=== PATIENT | female | born 1960 | race Caucasian/White ===

== ENCOUNTER 2017-03-18 00:45 | Emergency (ER) | payer OTHER ==
[~2017-03-18] VITALS: Ht 157.5 cm; Wt 60.0 kg
[~2017-03-18 00:45] MED LIST: LITH600C PO; TRAZ100T15 PO
[2017-03-18] MEDS ORDERED: ACETAMINOPHEN 325 MG TABLET PO ONE (01:00)
[2017-03-18] MEDS ORDERED: ROPI0.2537 PO (01:11)
[2017-03-18] MEDS ORDERED: ONDA4TAB7 PO (01:11)
[2017-03-18] MEDS ORDERED: FLUO10CA7 PO (01:12)
[2017-03-18] MEDS ORDERED: PANT20TA3 PO (01:12)
[2017-03-18] MEDS ORDERED: BENZ0.5T PO (01:12)
[2017-03-18] MEDS ORDERED: OLAN2.5T10 PO (01:12)
[2017-03-18] MEDS ORDERED: HYDR10TA4 PO (01:13)
[2017-03-18] MEDS ORDERED: ACETAMINOPHEN 325 MG TABLET ONE (01:14)
[2017-03-18 01:17] LABS: HEMATOCRIT 42.5 % (34.6-47.8); HEMOGLOBIN 14.2 g/dL (11.7-16.4); WHITE BLOOD COUNT 8.3 x10^3/uL (3.4-10)
[2017-03-18 01:29] LABS: ASPARTATE AMINO TRANSFERASE 63 U/L (15-37); BLOOD UREA NITROGEN 13 mg/dL (7-18)
[2017-03-18 01:39] LABS: IS PT STATUS REG ER OR PRE ER? YES
[2017-03-18] MEDS ORDERED: ALBUTEROL/IPRATROPIUM 2.5MG/0.5MG, 3 ML NPPB ONE (02:00)
[2017-03-18 02:27] VITALS: BP 101/64
== END 2017-03-18 02:31 | disposition home or self-care (01) ==
LOC: ED 01:40
DX: R07.89 Other chest pain (principal)
CPT/HCPCS: 36415; 71010; 80053; 84484; 85025; 93005; 94640; 99285; J7620

== ENCOUNTER 2018-03-31 04:56 | Emergency (ER) | payer OTHER ==
[~2018-03-31] VITALS: Ht 157.5 cm; Wt 58.5 kg
[~2018-03-31 04:56] MED LIST changes: +BENZ0.5T35 PO; +FLUO10CA7 PO; +HYDR10TA4 PO; +OLAN2.5T10 PO; +ONDA4TAB7 PO; +PANT20TA3 PO; +ROPI0.254 PO; +TRAZ-137 PO; -TRAZ100T15 PO
[2018-03-31] MEDS ORDERED: ASPIRIN 81 MG TABLET CHEW PO ONE (05:00)
[2018-03-31] MEDS ORDERED: LORazepam 1MG TABLET PO ONE (05:30)
[2018-03-31 05:31] LABS: BASOPHILS # (AUTO) 0.02 x10^3/uL (0-0.1); BASOPHILS % (AUTO) 0 % (0-1); EOSINOPHILS # (AUTO) 0.09 x10^3/uL (0-0.4); EOSINOPHILS % (AUTO) 2 % (1-7); LYMPHOCYTES % (AUTO) 52 % (22-44); MD NO; MEAN CORPUSCULAR HEMOGLOBIN 32.2 pg (27.0-34.8); MEAN CORPUSCULAR VOLUME 94.7 fL (80-100); MEAN PLATELET VOLUME 9.3 fL (7.4-10.4); MONOCYTES # (AUTO) 0.43 x10^3/uL (0.2-0.8); MONOCYTES % (AUTO) 8 % (2-9); NEUTROPHILS # (AUTO) 2.03 x10^3/uL (1.8-6.8); NEUTROPHILS % (AUTO) 38 % (42-75); PLATELET COUNT 144 x10^3/uL (130-400); RED BLOOD COUNT 4.04 x10^6/uL (3.82-5.3); RED CELL DISTRIBUTION WIDTH 13.8 % (9.6-15.2)
[2018-03-31 05:40] LABS: ALBUMIN 3.3 g/dL (3.4-5.0); ANION GAP 9 mmol/L (5-15); CALCIUM 8.3 mg/dL (8.5-10.1); CHLORIDE 109 mmol/L (98-107)
[2018-03-31 05:43] LABS: T4 (THYROXINE) 14.8 mcg/dL (4.8-13.9); TROPONIN I < 0.015 ng/mL (0.000-0.045)
[2018-03-31] MEDS ORDERED: ASPIRIN 81 MG TABLET CHEW ONE (05:58)
[2018-03-31] MEDS ORDERED: LORazepam 2 MG/ML, 1ML ONE (05:59)
[2018-03-31] MEDS ORDERED: LORazepam 2 MG/ML, 1ML IVPush ONE (06:00)
[2018-03-31 07:28] LABS: AMPHETAMINE SCREEN, URINE Negative (Negative); BARBITURATE SCREEN, URINE Negative (Negative); BENZODIAZEPINE SCREEN, URINE Negative (Negative); CANNABINOID SCREEN, URINE Negative (Negative); COCAINE SCREEN, URINE Negative (Negative); METHADONE SCREEN, URINE Negative (Negative); OPIATE SCREEN, URINE Negative (Negative)
[2018-03-31 08:10] VITALS: BP 115/55
== END 2018-03-31 08:11 | disposition home or self-care (01) ==
LOC: ED 06:29
DX: R00.2 Palpitations (principal); E05.90 Thyrotoxicosis, unspecified without thyrotoxic crisis or storm; F31.9 Bipolar disorder, unspecified; F20.9 Schizophrenia, unspecified; R51 Headache
CPT/HCPCS: 36415; 70450; 71046; 80048; 80307; 82040; 83880; 84436; 84443; 84484; 85025; 93005; 99285

== ENCOUNTER 2018-04-06 19:53 | Emergency (ER) | payer OTHER ==
[~2018-04-06] VITALS: Ht 157.5 cm; Wt 57.0 kg
[2018-04-06] MEDS ORDERED: SODIUM CHLORIDE FLUSH 10ML SYR IVF ONE (20:30)
[2018-04-06] MEDS ORDERED: LORazepam 2 MG/ML, 1ML IVPush ONE (20:30)
[2018-04-06] MEDS ORDERED: LORazepam 2 MG/ML, 1ML ONE (20:42)
[2018-04-06 20:57] LABS: ALANINE AMINOTRANSFERASE 149 U/L (12-78); ALBUMIN 3.5 g/dL (3.4-5.0); ANION GAP 8 mmol/L (5-15); CALCIUM 8.2 mg/dL (8.5-10.1); CHLORIDE 110 mmol/L (98-107); CREATININE 0.66 mg/dL (0.55-1.02)
[2018-04-06] MEDS ORDERED: OXYcodone/APAP 10/325MG TABLET ONE (20:59)
[2018-04-06] MEDS ORDERED: OXYcodone/APAP 10/325MG TABLET PO ONE (21:00)
[2018-04-06 21:07] LABS: ALKALINE PHOSPHATASE 68 U/L (45-117); BILIRUBIN,TOTAL 0.3 mg/dL (0.2-1.0); FREE T4 (FREE THYROXINE) 1.06 ng/dL (0.76-1.46); THYROID STIMULATING HORMONE 0.966 mIU/L (0.358-3.740); TOTAL PROTEIN 7.1 g/dL (6.4-8.2)
[2018-04-06 21:10] LABS: BASOPHILS # (AUTO) 0.02 x10^3/uL (0-0.1); BASOPHILS % (AUTO) 0 % (0-1); EOSINOPHILS # (AUTO) 0.12 x10^3/uL (0-0.4); EOSINOPHILS % (AUTO) 2 % (1-7); LYMPHOCYTES # (AUTO) 3.61 x10^3/uL (1-3.4); LYMPHOCYTES % (AUTO) 47 % (22-44); MD NO; MEAN CORPUSCULAR HEMOGLOBIN 32.2 pg (27.0-34.8); MEAN CORPUSCULAR HGB CONC 33.9 g/dL (32.4-35.8); MEAN CORPUSCULAR VOLUME 95.1 fL (80-100); MONOCYTES # (AUTO) 0.55 x10^3/uL (0.2-0.8); MONOCYTES % (AUTO) 7 % (2-9); NEUTROPHILS # (AUTO) 3.39 x10^3/uL (1.8-6.8); NEUTROPHILS % (AUTO) 44 % (42-75); PLATELET COUNT 196 x10^3/uL (130-400); RED BLOOD COUNT 4.28 x10^6/uL (3.82-5.3); RED CELL DISTRIBUTION WIDTH 13.6 % (9.6-15.2)
[2018-04-06 21:37] VITALS: BP 124/75
== END 2018-04-06 21:39 | disposition home or self-care (01) ==
LOC: ED 20:32
DX: F41.1 Generalized anxiety disorder (principal); F20.9 Schizophrenia, unspecified; F31.9 Bipolar disorder, unspecified; E05.90 Thyrotoxicosis, unspecified without thyrotoxic crisis or storm
CPT/HCPCS: 36415; 80053; 84439; 84443; 84481; 85025; 93005; 99285

== ENCOUNTER 2018-05-05 00:34 | Emergency (ER) | payer OTHER ==
[~2018-05-05] VITALS: Ht 157.5 cm; Wt 60.1 kg
[2018-05-05] MEDS ORDERED: PROP10TA PO (00:43)
[2018-05-05] MEDS ORDERED: METH5TAB6 PO (00:43)
[2018-05-05] MEDS ORDERED: KETOROLAC 30 MG/1 ML ONE (00:59)
[2018-05-05] MEDS ORDERED: KETOROLAC 30 MG/1 ML IM ONE (01:00)
[2018-05-05 01:18] LABS: BASOPHILS # (AUTO) 0.01 x10^3/uL (0-0.1); BASOPHILS % (AUTO) 0 % (0-1); EOSINOPHILS # (AUTO) 0.14 x10^3/uL (0-0.4); EOSINOPHILS % (AUTO) 2 % (1-7); LYMPHOCYTES # (AUTO) 3.13 x10^3/uL (1-3.4); LYMPHOCYTES % (AUTO) 41 % (22-44); MD NO; MEAN CORPUSCULAR HEMOGLOBIN 32.3 pg (27.0-34.8); MEAN CORPUSCULAR HGB CONC 34.3 g/dL (32.4-35.8); MEAN CORPUSCULAR VOLUME 94.1 fL (80-100); MEAN PLATELET VOLUME 9.6 fL (7.4-10.4); MONOCYTES # (AUTO) 0.65 x10^3/uL (0.2-0.8); MONOCYTES % (AUTO) 9 % (2-9); NEUTROPHILS # (AUTO) 3.73 x10^3/uL (1.8-6.8); NEUTROPHILS % (AUTO) 49 % (42-75); PLATELET COUNT 140 x10^3/uL (130-400); RED BLOOD COUNT 4.23 x10^6/uL (3.82-5.3); RED CELL DISTRIBUTION WIDTH 13.8 % (9.6-15.2)
[2018-05-05 01:27] LABS: ALBUMIN 3.5 g/dL (3.4-5.0); CALCIUM 8.3 mg/dL (8.5-10.1); CREATININE 0.67 mg/dL (0.55-1.02)
[2018-05-05 01:30] LABS: TROPONIN I < 0.015 ng/mL (0.000-0.045)
[2018-05-05 01:40] LABS: ANION GAP 8 mmol/L (5-15); CHLORIDE 108 mmol/L (98-107)
[2018-05-05] MEDS ORDERED: DIPHENHYDRAMINE 25 MG CAPSULE PO ONE (02:30)
[2018-05-05] MEDS ORDERED: DIPHENHYDRAMINE 25 MG CAPSULE ONE (02:32)
[2018-05-05 03:35] VITALS: BP 97/52
[2018-05-05 03:48] LABS: TROPONIN I < 0.015 ng/mL (0.000-0.045)
== END 2018-05-05 04:32 | disposition home or self-care (01) ==
LOC: ED 00:53
DX: T43.215A Adverse effect of selective serotonin and norepinephrine reuptake inhibitors, initial encounter (principal); R07.89 Other chest pain; F41.1 Generalized anxiety disorder; E03.9 Hypothyroidism, unspecified; Y92.9 Unspecified place or not applicable
CPT/HCPCS: 36415; 71045; 80048; 82040; 84484; 85025; 93005; 96372; 99285; J1885; Q0163

== ENCOUNTER 2018-07-21 20:58 | Emergency (ER) | payer OTHER ==
[~2018-07-21] VITALS: Ht 157.5 cm; Wt 65.3 kg
[~2018-07-21 20:58] MED LIST changes: +METH5TAB6 PO; +PROP10TA16 PO
[2018-07-21] MEDS ORDERED: DEXAMETHASONE 4 MG/ML, 1ML ONE (21:29)
[2018-07-21] MEDS ORDERED: DIPHENHYDRAMINE 50 MG/ML, 1ML ONE (21:29)
[2018-07-21] MEDS ORDERED: METOCLOPRAMIDE 5 MG/ML, 2ML ONE (21:29)
[2018-07-21] MEDS ORDERED: KETOROLAC 30 MG/1 ML ONE (21:29)
[2018-07-21] MEDS ORDERED: DIPHENHYDRAMINE 50 MG/ML, 1ML IVPush ONE (21:30)
[2018-07-21] MEDS ORDERED: METOCLOPRAMIDE 5 MG/ML, 2ML IVPush ONE (21:30)
[2018-07-21] MEDS ORDERED: DEXAMETHASONE 4 MG/ML, 1ML IVPush ONE (21:30)
[2018-07-21] MEDS ORDERED: KETOROLAC 30 MG/1 ML IVPush ONE (21:30)
--- NOTE | 2018-07-21 21:51 | NUR ---
Pt reports migrane type headache starting approx noon, no relief with home meds, photophobic, nauseas, denies vomiting, denies hx of. A&Ox4, lights dimmed, door shut for decreased noise, family at bedside.
--- NOTE | 2018-07-21 22:16 | NUR ---
Pt denies pain relief, MD aware
[2018-07-21] MEDS ORDERED: MAGNESIUM SULFATE PMX 2GM/50ML 50 ML IV ONE (22:30)
--- NOTE | 2018-07-21 22:42 | NUR ---
BREAK RN: Plan of care updated with patient. Magnesium infusing as ordered and documented, witnessed by SUSIE De Leon.
--- NOTE | 2018-07-21 23:16 | NUR ---
Report from Dat RICHARDS, mag alvarado, pt remains anxious, denies any pain relief after multiple interventions including meds.
[2018-07-21] MEDS ORDERED: MORPHINE SULFATE 4 MG/ML, 1ML ONE (23:28)
--- NOTE | 2018-07-21 23:29 | NUR ---
Morphine removed from pts allergies, pt states "I dont know what that is in there, I've never had an allergy or reaction to morphine" aware and confirmed okay to remove allergy.
[2018-07-21] MEDS ORDERED: MORPHINE SULFATE 4 MG/ML, 1ML IVPush ONE (23:30)
--- NOTE | 2018-07-21 23:45 | NUR ---
in for recheck, pt continues to deny any pain relief. Pt remains on cont cardiac and and pulse ox monitoring. Mag infusing. Medicated per emar, [address]
--- NOTE | 2018-07-22 00:10 | NUR ---
Pt reports 01/26 headache, states that is decreased from inital assesment. Mag still infusing, awaiting MD recheck. Pt denies any needs/concerns.
[2018-07-22 00:23] VITALS: BP 107/57
--- NOTE | 2018-07-22 00:32 | NUR ---
in for recheck, pt agrees to DC
--- NOTE | 2018-07-22 00:52 | NUR ---
Pt reports decreased/tolerable level of pain
== END 2018-07-22 00:54 | disposition home or self-care (01) ==
LOC: ED 22:21
DX: R51 Headache (principal); H53.149 Visual discomfort, unspecified; R11.0 Nausea; E05.90 Thyrotoxicosis, unspecified without thyrotoxic crisis or storm; M81.0 Age-related osteoporosis without current pathological fracture; F31.9 Bipolar disorder, unspecified; F20.9 Schizophrenia, unspecified; F17.200 Nicotine dependence, unspecified, uncomplicated; Z72.9 Problem related to lifestyle, unspecified
CPT/HCPCS: 70450; 96365; 96366; 96375; 99284; J1100; J1200; J1885; J2765; J3475

== ENCOUNTER 2018-12-22 05:35 | Emergency (ER) | payer OTHER ==
[~2018-12-22] VITALS: Ht 157.5 cm; Wt 66.8 kg
[2018-12-22] MEDS ORDERED: SODIUM CHLORIDE FLUSH 10ML SYR IVF ONE (06:00)
--- NOTE | 2018-12-22 06:06 | NUR ---
PT BIB [facility] WITH C/O INTERMITTENT L SIDE WEAKNESS AND TINGLING FOR 1 MONTH. PT'S AOX4. RESPS EVEN AND UNLABORED. SPEECH CLEAR. ALL MONITORS IN PLACE. CALL LIGHT WITHIN REACH.
--- NOTE | 2018-12-22 06:08 | NUR ---
PT TO CT NOW.
--- NOTE | 2018-12-22 06:12 | NUR ---
PT BACK TO ROOM FROM CT NOW.
[2018-12-22] MEDS ORDERED: METH5TAB6 PO (06:18)
[2018-12-22] MEDS ORDERED: RISP1TAB3 PO (06:19)
[2018-12-22] MEDS ORDERED: PROM25TA10 PO (06:21)
[2018-12-22] MEDS ORDERED: OXYC5CAP2 PO (06:22)
[2018-12-22] MEDS ORDERED: CALC-534 PO (06:24)
[2018-12-22] MEDS ORDERED: CHOL3000 PO (06:25)
[2018-12-22 06:35] LABS: BASOPHILS # (AUTO) 0.03 x10^3/uL (0-0.1); BASOPHILS % (AUTO) 1 % (0-1); EOSINOPHILS # (AUTO) 0.11 x10^3/uL (0-0.4); EOSINOPHILS % (AUTO) 2 % (1-7); LYMPHOCYTES # (AUTO) 2.63 x10^3/uL (1-3.4); LYMPHOCYTES % (AUTO) 49 % (22-44); MD NO; MEAN CORPUSCULAR HEMOGLOBIN 32.7 pg (27.0-34.8); MEAN CORPUSCULAR HGB CONC 33.6 g/dL (32.4-35.8); MEAN CORPUSCULAR VOLUME 97.4 fL (80-100); MEAN PLATELET VOLUME 9.3 fL (7.4-10.4); MONOCYTES # (AUTO) 0.54 x10^3/uL (0.2-0.8); MONOCYTES % (AUTO) 10 % (2-9); NEUTROPHILS # (AUTO) 2.08 x10^3/uL (1.8-6.8); NEUTROPHILS % (AUTO) 39 % (42-75); PLATELET COUNT 126 x10^3/uL (130-400); RED BLOOD COUNT 4.48 x10^6/uL (3.82-5.3); RED CELL DISTRIBUTION WIDTH 13.7 % (9.6-15.2)
[2018-12-22 06:46] LABS: ALANINE AMINOTRANSFERASE 94 U/L (12-78); ALBUMIN 3.5 g/dL (3.4-5.0); ANION GAP 8 mmol/L (5-15); CALCIUM 8.6 mg/dL (8.5-10.1); CHLORIDE 108 mmol/L (98-107); CREATININE 0.74 mg/dL (0.55-1.02)
[2018-12-22 06:49] LABS: ALKALINE PHOSPHATASE 107 U/L (45-117); BILIRUBIN,TOTAL 0.4 mg/dL (0.2-1.0); TOTAL PROTEIN 7.3 g/dL (6.4-8.2)
--- NOTE | 2018-12-22 07:20 | NUR ---
REPORT GIVEN TO RACHELLE RICHARDS.
--- NOTE | 2018-12-22 07:23 | NUR ---
REPORT TAKEN FROM DENICE. AND RN INFORMED THAT PT HAS [facility]. PT TO BE TRANSFERRED.
[2018-12-22] MEDS ORDERED: ASPIRIN 325 MG TABLET PO ONE (07:30)
[2018-12-22] MEDS ORDERED: ASPIRIN 325 MG TABLET ONE (07:46)
[2018-12-22] MEDS ORDERED: OXYcodone/APAP 7.5/325MG TABLET ONE (07:59)
[2018-12-22] MEDS ORDERED: OXYcodone/APAP 7.5/325MG TABLET PO ONE (08:00)
--- NOTE | 2018-12-22 08:16 | NUR ---
PT MEDICATED PER EMAR. UPDATED ON POC REGARDING TRANSFER. NADN. DENIES NEEDS. CALL LIGHT IN REACH. VSS. PT RESTING ON [facility].
--- NOTE | 2018-12-22 09:34 | NUR ---
PT AMBULATORY TO BATHROOM AT THIS TIME.
--- NOTE | 2018-12-22 10:08 | NUR ---
PT RESTING ON GURNEY. NADN. SHIELDS.
[2018-12-22 11:08] VITALS: BP 105/63
--- NOTE | 2018-12-22 11:08 | NUR ---
PT RESTING ON GURNEY. NADN. SHIELDS.
--- NOTE | 2018-12-22 11:18 | NUR ---
REPORT GIVEN TO SUSIE SAWANT AT [facility].
--- NOTE | 2018-12-22 12:09 | NUR ---
PT BEING PICKED UP BY [facility] AT THIS TIME.
--- NOTE | 2018-12-22 12:13 | NUR ---
[facility] BE[facility]SF[facility].
== END 2018-12-22 12:50 | disposition short-term general hospital (02) ==
LOC: ED 06:38 → EDIP 07:14 → UNDOADMIN 07:14 → ED 12:50
DX: R53.1 Weakness (principal); E05.90 Thyrotoxicosis, unspecified without thyrotoxic crisis or storm; G89.29 Other chronic pain; R51 Headache
CPT/HCPCS: 36415; 70450; 72125; 80053; 85025; 93005; 99285

== ENCOUNTER 2020-06-26 10:26 | Outpatient (CLI) | payer MEDICARE ==
[~2020-06-26 10:26] MED LIST changes: +CALC-534 PO; +CHOL3000 PO; +FLUO10CA15 PO; -FLUO10CA7 PO; +HYDR-2995 PO; -HYDR10TA4 PO; +OXYC5CAP2 PO; -PANT20TA3 PO; +PANT20TA4 PO; +PROM25TA10 PO; +RISP1TAB90 PO; -TRAZ-137 PO; +TRAZ-175 PO
== END 2020-06-26 23:59 | disposition home or self-care (01) ==
LOC: CFH 10:26
PROVIDERS: ATTEND Nurse Practitioner
DX: Z12.31 Encounter for screening mammogram for malignant neoplasm of breast (principal); M81.0 Age-related osteoporosis without current pathological fracture; M85.89 Other specified disorders of bone density and structure, multiple sites; Z78.0 Asymptomatic menopausal state
CPT/HCPCS: 77063; 77067; 77080

== ENCOUNTER 2020-06-28 21:43 | Emergency (ER) | payer MEDICARE ==
[~2020-06-28] VITALS: Ht 157.5 cm; Wt 47.0 kg
[2020-06-28] MEDS ORDERED: KETOROLAC 30 MG/1 ML ONE (21:54)
[2020-06-28] MEDS ORDERED: PROCHLORPERAZINE 5 MG/ML, 2ML ONE (21:54)
[2020-06-28] MEDS ORDERED: HYDROmorphone 1 MG/ML, 1ML INJ ONE (21:55)
[2020-06-28] MEDS ORDERED: PROCHLORPERAZINE 5 MG/ML, 2ML IVPush ONE (22:00)
[2020-06-28] MEDS ORDERED: HYDROmorphone 1 MG/ML, 1ML INJ IVPush PRN (22:00)
[2020-06-28] MEDS ORDERED: KETOROLAC 30 MG/1 ML IVPush ONE (22:00)
[2020-06-28 22:50] VITALS: BP 117/52
== END 2020-06-28 22:56 | disposition home or self-care (01) ==
LOC: ED 22:55
DX: G44.89 Other headache syndrome (principal); Z72.9 Problem related to lifestyle, unspecified; E03.9 Hypothyroidism, unspecified; Z86.718 Personal history of other venous thrombosis and embolism; I34.1 Nonrheumatic mitral (valve) prolapse
CPT/HCPCS: 96374; 96375; 99284; J0780; J1170; J1885

== ENCOUNTER 2020-09-12 04:40 | Emergency (ER) | payer MEDICARE ==
[~2020-09-12] VITALS: Ht 172.7 cm; Wt 49.0 kg
[2020-09-12] MEDS ORDERED: KETOROLAC 30 MG/1 ML ONE (05:18)
--- NOTE | 2020-09-12 05:22 | NUR ---
PT TO RADIOLOGY
[2020-09-12] MEDS ORDERED: KETOROLAC 30 MG/1 ML IM ONE (05:30)
[2020-09-12 06:39] VITALS: BP 110/59
== END 2020-09-12 06:51 | disposition home or self-care (01) ==
LOC: ED 05:16
DX: S70.01XA Contusion of right hip, initial encounter (principal); G89.29 Other chronic pain; I34.1 Nonrheumatic mitral (valve) prolapse; Z86.73 Personal history of transient ischemic attack (TIA), and cerebral infarction without residual deficits; Z86.39 Personal history of other endocrine, nutritional and metabolic disease; Z88.5 Allergy status to narcotic agent; Z88.8 Allergy status to other drugs, medicaments and biological substances; W01.0XXA Fall on same level from slipping, tripping and stumbling without subsequent striking against object, initial encounter; Y93.89 Activity, other specified; Y92.009 Unspecified place in unspecified non-institutional (private) residence as the place of occurrence of the external cause; Y99.8 Other external cause status
CPT/HCPCS: 73502; 96372; 99283; J1885

== ENCOUNTER 2020-10-23 16:14 | Outpatient (CLI) | payer MEDICARE | END 2020-10-23 23:59 | disposition home or self-care (01) | LOC: RAD 16:14 | PROVIDERS: ATTEND Pain Medicine Interventional Pain Medicine | DX: Z02.9 Encounter for administrative examinations, unspecified (principal) ==

== ENCOUNTER → 2020-10-26 | Outpatient (CLI) | payer MEDICARE | END | disposition home or self-care (01) | LOC: RAD 12:34 | PROVIDERS: ATTEND Pain Medicine Interventional Pain Medicine | DX: Z01.818 Encounter for other preprocedural examination (principal) | CPT/HCPCS: 93005 ==